=== PATIENT | female | born 1955 | race Two or more races ===

== ENCOUNTER 2017-02-04 09:56 | Emergency (ER) | payer MEDICAID ==
[~2017-02-04] VITALS: Ht 162.6 cm; Wt 72.6 kg
[~2017-02-04 09:56] MED LIST: ALPR0.25 PO; AMLO10TA4 PO; HYDR12.55 PO; LEVO500T15 PO; OXYC-128 PO; SERT25TA PO; TAMS-12 PO; ZOLP5TAB2 PO
--- NOTE | 2017-02-04 10:10 | NUR ---
PT BIBA#839 C/O DIZZINESS X 4 DAYS PT DENIES ANY HEAD TRAUMA OR INJURY. PLACED ON MONITOR .VSS AWAITING MD ORDER
[2017-02-04] MEDS ORDERED: ONDANSETRON HCL/PF 4 MG/2 ML VIAL IVP ONE (10:30)
[2017-02-04] MEDS ORDERED: IV NS 0.9% 1,000 ML BAG IV ONE (10:30)
[2017-02-04] MEDS ORDERED: MECLIZINE HCL 12.5 MG TABLET PO ONE (10:30)
--- NOTE | 2017-02-04 10:30 | NUR ---
URINE SAMPLE COLLECTED SENT TO LAB
[2017-02-04] MEDS ORDERED: MECLIZINE HCL 25 MG TABLET ONE (10:35)
[2017-02-04] MEDS ORDERED: IV NS 0.9% 1,000 ML ONE (10:36)
[2017-02-04] MEDS ORDERED: ONDANSETRON HCL/PF 4 MG/2 ML VIAL ONE (10:36)
[2017-02-04] MEDS ORDERED: IV SET PRIMARY PUMP SET 1 EA INFUS.SET MC ONE (10:36)
[2017-02-04 10:38] LABS: APPEARANCE,URINE Cloudy (CLEAR); BILIRUBIN,URINE Negative (NEGATIVE); BLOOD, URINE Trace-lysed Ery/uL (NEGATIVE); COLOR,URINE Yellow (YELLOW); KETONES,URINE Negative (NEGATIVE); LEUKOCYTE ESTERASE ,URINE Large (NEGATIVE); NITRITE, URINE Negative (NEGATIVE); PH,URINE 5.5 (5.0-8.0); PROTEIN,URINE Negative (NEGATIVE); UGLUCOSE Negative (NEGATIVE); UROBILINOGEN,URINE 0.2 EU/dL (0.2)
--- NOTE | 2017-02-04 10:45 | NUR ---
RFA #20 IV ACCESS BLOOD SAMPLE COLLECTED SENT TO LAB
[2017-02-04 10:47] LABS: EOSINOPHILS # (AUTO) 0.1 /CMM (0.0-0.7)
[2017-02-04 10:58] LABS: CALCIUM, SERUM 9.2 mg/dL (8.5-10.1); CREATININE 0.7 mg/dL (0.6-1.3); POTASSIUM 4.5 mmol/L (3.5-5.1)
[2017-02-04 11:05] LABS: BASOPHILS % (AUTO) 0.5 % (0.0-2.0); HEMATOCRIT 36 % (33-45); HEMOGLOBIN 12.2 g/dL (11.5-14.8); LYMPHOCYTES # (AUTO) 1.5 /CMM (0.8-4.8); LYMPHOCYTES % (AUTO) 25.8 % (20.0-44.0); MEAN CORPUSCULAR HEMOGLOBIN 27 PG (26.0-33.0); MEAN CORPUSCULAR HGB CONC 34 g/dl (31.0-36.0); MEAN CORPUSCULAR VOLUME 79 fL (82-100); MONOCYTES # (AUTO) 0.3 /CMM (0.1-1.30); NEUTROPHILS # (AUTO) 3.9 /CMM (1.8-8.9); NEUTROPHILS % (AUTO) 65.7 % (43.0-81.0); PLATELET COUNT (AUTO) 175 /CMM (150-450); RDW COEFFICIENT OF VARIATION 14.1 (11.5-15.0); RED BLOOD CELL COUNT(AUTO) 4.58 MIL/uL (4.0-5.2); WHITE BLOOD COUNT (AUTO) 5.8 K/uL (4.3-11.0)
[2017-02-04 11:10] LABS: ADD URINE CULTURE YES; BACTERIA,URINE Many /HPF (None Seen); RBC,URINE 0-2 /HPF (0-2); SQUAMOUS EPITHELIAL CELL,UR Many /HPF (None Seen); WBC,URINE 21-50 /HPF (0-3)
[2017-02-04 11:54] VITALS: BP 131/77
[2017-02-04] MEDS ORDERED: CIPROFLOXACIN HCL 250 MG TABLET PO ONE (12:00)
== END 2017-02-04 11:55 | disposition home or self-care (01) ==
LOC: ER 09:58
DX: H81.13 Benign paroxysmal vertigo, bilateral (principal); I10 Essential (primary) hypertension; Z87.442 Personal history of urinary calculi; Z95.5 Presence of coronary angioplasty implant and graft; Z90.89 Acquired absence of other organs
CPT/HCPCS: 36415; 80048; 81001; 85025; 87086; 93005; 96361; 96374; 99285; A4606; J2405; J7030; J8597; Z7610; 81000-TC

== ENCOUNTER 2017-02-10 21:11 | Emergency (ER) | payer MEDICAID ==
[~2017-02-10] VITALS: Ht 167.6 cm; Wt 81.6 kg
--- NOTE | 2017-02-10 21:14 | NUR ---
PT "HIGH BLOOD PRESSURE; HEADACHE" BP 150/96
[2017-02-10] MEDS ORDERED: NITROGLYCERIN 0.4 MG/TAB BOTTLE SL ONE (21:30)
--- NOTE | 2017-02-10 21:30 | NUR ---
BLOOD SAMPLE COLLECTED SENT TO LAB
[2017-02-10 21:37] LABS: BASOPHILS % (AUTO) 0.6 % (0.0-2.0); EOSINOPHILS # (AUTO) 0.2 /CMM (0.0-0.7); EOSINOPHILS % (AUTO) 2.6 % (0.0-6.0); HEMATOCRIT 36 % (33-45); LYMPHOCYTES % (AUTO) 28.5 % (20.0-44.0); MEAN CORPUSCULAR HEMOGLOBIN 26 PG (26.0-33.0); MEAN CORPUSCULAR HGB CONC 33 g/dl (31.0-36.0); MEAN CORPUSCULAR VOLUME 79 fL (82-100); MONOCYTES # (AUTO) 0.5 /CMM (0.1-1.30); MONOCYTES % (AUTO) 7.1 % (2.0-12.0); NEUTROPHILS # (AUTO) 4.4 /CMM (1.8-8.9); NEUTROPHILS % (AUTO) 61.2 % (43.0-81.0); PLATELET COUNT (AUTO) 193 /CMM (150-450); RDW COEFFICIENT OF VARIATION 13.7 (11.5-15.0); RED BLOOD CELL COUNT(AUTO) 4.56 MIL/uL (4.0-5.2); WHITE BLOOD COUNT (AUTO) 7.1 K/uL (4.3-11.0)
[2017-02-10] MEDS ORDERED: NITROGLYCERIN 0.4 MG/TAB BOTTLE ONE (21:40)
--- NOTE | 2017-02-10 21:50 | NUR ---
XRAY AT BEDSIDE
[2017-02-10 21:52] LABS: CALCIUM, SERUM 9.3 mg/dL (8.5-10.1); CARBON DIOXIDE 26 mmol/L (21-32); CHLORIDE 106 mmol/L (98-107); CREATININE 0.8 mg/dL (0.6-1.3); GFR 73 mL/min (>60); GLUCOSE 106 mg/dL (74-106); POTASSIUM 3.8 mmol/L (3.5-5.1); SODIUM SERUM 140 mmol/L (136-145); UREA NITROGEN, BLOOD 13 mg/dL (7-18)
[2017-02-10 22:02] LABS: INR 0.98 (0.87-1.13); PROTHROMBIN TIME 10.2 SECS (9.5-12.7); TROPONIN I < 0.017 ng/mL (0.00-0.056)
--- NOTE | 2017-02-10 22:06 | NUR ---
XIN #20 IV ACCESS.
[2017-02-10 22:16] LABS: APPEARANCE,URINE CLEAR (CLEAR); BILIRUBIN,URINE NEGATIVE (NEGATIVE); BLOOD, URINE TRACE Ery/uL (NEGATIVE); COLOR,URINE YELLOW (YELLOW); KETONES,URINE NEGATIVE (NEGATIVE); LEUKOCYTE ESTERASE ,URINE 3+ (NEGATIVE); NITRITE, URINE NEGATIVE (NEGATIVE); PH,URINE 6.5 (5.0-8.0); PROTEIN,URINE NEGATIVE (NEGATIVE); UGLUCOSE NEGATIVE (NEGATIVE); UROBILINOGEN,URINE 0.2 EU/dL (0.2)
[2017-02-10 22:27] LABS: ADD URINE CULTURE YES; BACTERIA,URINE None seen /HPF (None Seen); SQUAMOUS EPITHELIAL CELL,UR Few /HPF (None Seen)
[2017-02-10 22:43] VITALS: BP 140/82
--- NOTE | 2017-02-10 22:44 | NUR ---
IV removed. Catheter intact and site benign. Pressure and 4x4 applied to site. No bleeding noted.
--- NOTE | 2017-02-10 22:44 | NUR ---
Patient discharged to home in stable condition. Written and verbal after care instructions given. Patient verbalizes understanding of instruction.
== END 2017-02-10 22:44 | disposition home or self-care (01) ==
LOC: ER 21:46
DX: R07.89 Other chest pain (principal); I10 Essential (primary) hypertension
CPT/HCPCS: 36415; 71010-TC; 80048-TC; 81000-TC; 84484-TC; 85025-TC; 85730-TC; 87086-TC; A4606; Z7610

== ENCOUNTER 2019-09-01 17:53 | Emergency (ER) | payer MEDICARE, MEDICAID ==
[~2019-09-01] VITALS: Ht 165.1 cm; Wt 90.7 kg
[~2019-09-01 17:53] MED LIST changes: -LEVO500T15 PO; +LEVO500T75 PO
--- NOTE | 2019-09-01 18:40 | NUR ---
pt bib family to ed bed 02 c/o hypertension since last night. states taking her usual bp medication. denies chest pain. 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 awaiting md adam.
[2019-09-01 18:41] LABS: BASOPHILS % (AUTO) 0.6 % (0.0-2.0); EOSINOPHILS % (AUTO) 1.5 % (0.0-6.0); HEMATOCRIT 42 % (33-45); HEMOGLOBIN 13.4 g/dL (11.5-14.8); LYMPHOCYTES # (AUTO) 2.1 /CMM (0.8-4.8); MEAN CORPUSCULAR HGB CONC 32 g/dl (31.0-36.0); MEAN CORPUSCULAR VOLUME 81 fL (82-100); MONOCYTES # (AUTO) 0.5 /CMM (0.1-1.30); MONOCYTES % (AUTO) 6.3 % (2.0-12.0); NEUTROPHILS # (AUTO) 5.2 /CMM (1.8-8.9); NEUTROPHILS % (AUTO) 65.6 % (43.0-81.0); PLATELET COUNT (AUTO) 196 /CMM (150-450); WHITE BLOOD COUNT (AUTO) 7.9 K/uL (4.3-11.0)
--- NOTE | 2019-09-01 18:49 | NUR ---
dr carpenter at [facility] for eval.
[2019-09-01 18:52] LABS: CARBON DIOXIDE 30 mmol/L (21-32); CHLORIDE 92 mmol/L (98-107); CREATININE 0.7 mg/dL (0.6-1.3); GLUCOSE 94 mg/dL (74-106); POTASSIUM 3.7 mmol/L (3.5-5.1); SODIUM SERUM 128 mmol/L (136-145); UREA NITROGEN, BLOOD 17 mg/dL (7-18)
--- NOTE | 2019-09-01 19:03 | NUR ---
radiology at bedside for chest xray.
--- NOTE | 2019-09-01 19:16 | NUR ---
IV removed. Catheter intact and site benign. Pressure and 4x4 applied to site. No bleeding noted.
[2019-09-01 19:20] VITALS: BP 152/102
--- NOTE | 2019-09-01 19:20 | NUR ---
Patient discharged to home in stable condition. Written and verbal after care instructions given. Patient verbalizes understanding of instruction.
== END 2019-09-01 19:21 | disposition home or self-care (01) ==
LOC: ER 17:54
DX: I10 Essential (primary) hypertension (principal); E87.1 Hypo-osmolality and hyponatremia; F41.9 Anxiety disorder, unspecified; Z90.89 Acquired absence of other organs; Z95.818 Presence of other cardiac implants and grafts; Z87.442 Personal history of urinary calculi; Z79.899 Other long term (current) drug therapy
CPT/HCPCS: 36415; 71045-TC; 80048-TC; 84484-TC; 85025-TC

== ENCOUNTER 2019-10-16 01:16 | Emergency (ER) | payer MEDICARE, MEDICAID ==
[~2019-10-16] VITALS: Ht 154.9 cm; Wt 90.7 kg
--- NOTE | 2019-10-16 01:20 | NUR ---
PT BIBS SON C/O L CHEST PAIN RADIATING TO L LATERAL CHEST. SOB. WEAK X YESTERDAY +N/-VD. PT AAOX4, NO ACUTE DISTRESS NOTED. 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 WILL CONTINUE TO MONITOR
--- NOTE | 2019-10-16 01:25 | NUR ---
BLOOD DRAWN AND SENT TO LAB
[2019-10-16] MEDS ORDERED: NITROGLYCERIN 0.4 MG/TAB BOTTLE SL ONE (01:30)
[2019-10-16] MEDS ORDERED: ASPIRIN 81 MG TAB.CHEW PO ONE (01:30)
[2019-10-16] MEDS ORDERED: ASPIRIN 81 MG TAB.CHEW ONE (01:35)
[2019-10-16] MEDS ORDERED: NITROGLYCERIN 0.4 MG/TAB BOTTLE ONE (01:35)
--- NOTE | 2019-10-16 01:47 | NUR ---
XRAY AT BEDSIDE
[2019-10-16 01:49] LABS: BASOPHILS % (AUTO) 0.6 % (0.0-2.0); EOSINOPHILS % (AUTO) 2.1 % (0.0-6.0); HEMATOCRIT 38 % (33-45); HEMOGLOBIN 12.3 g/dL (11.5-14.8); LYMPHOCYTES # (AUTO) 2.5 /CMM (0.8-4.8); LYMPHOCYTES % (AUTO) 28.6 % (20.0-44.0); MEAN CORPUSCULAR HGB CONC 32 g/dl (31.0-36.0); MEAN CORPUSCULAR VOLUME 82 fL (82-100); MONOCYTES # (AUTO) 0.6 /CMM (0.1-1.30); MONOCYTES % (AUTO) 7.3 % (2.0-12.0); NEUTROPHILS # (AUTO) 5.3 /CMM (1.8-8.9); NEUTROPHILS % (AUTO) 61.4 % (43.0-81.0); PLATELET COUNT (AUTO) 210 /CMM (150-450); WHITE BLOOD COUNT (AUTO) 8.7 K/uL (4.3-11.0)
--- NOTE | 2019-10-16 01:53 | NUR ---
2ND DOSE OF NITROGLYCERIN 0.4 MG GIVE SL.
[2019-10-16 01:57] LABS: CARBON DIOXIDE 29 mmol/L (21-32); CHLORIDE 106 mmol/L (98-107); GLUCOSE 123 mg/dL (74-106); POTASSIUM 3.6 mmol/L (3.5-5.1); SODIUM SERUM 144 mmol/L (136-145); UREA NITROGEN, BLOOD 24 mg/dL (7-18)
--- NOTE | 2019-10-16 02:01 | NUR ---
PT RELIEVED W/ 2ND DOSE OF NITROGLYCERIN 0.4. 0/10 CHEST PAIN
--- NOTE | 2019-10-16 02:05 | NUR ---
[facility]BER JET [phone]
--- NOTE | 2019-10-16 03:24 | NUR ---
PT AMBULATED TO THE RESTROOM W/ STEADY GAIT
[2019-10-16 03:35] LABS: APPEARANCE,URINE Slightly Cloudy (CLEAR); BILIRUBIN,URINE SMALL (NEGATIVE); BLOOD, URINE Moderate Ery/uL (NEGATIVE); COLOR,URINE Dark (YELLOW); KETONES,URINE Trace (NEGATIVE); LEUKOCYTE ESTERASE ,URINE Small (NEGATIVE); NITRITE, URINE Negative (NEGATIVE); PH,URINE 5.5 (5.0-8.0); PROTEIN,URINE Negative (NEGATIVE); UGLUCOSE Negative (NEGATIVE); UROBILINOGEN,URINE 0.2 EU/dL (0.2)
--- NOTE | 2019-10-16 03:41 | NUR ---
DR. AGUIRRE ON THE PHONE WITH DR. YARBROUGH FROM [facility]
[2019-10-16] MEDS ORDERED: LORA-259 PO (03:46)
--- NOTE | 2019-10-16 04:06 | NUR ---
PER [facility] ([phone]), PT WILL BE TRANSFERRED TO [facility], PENDING BED ASSIGNMENT
--- NOTE | 2019-10-16 04:12 | NUR ---
Trever elliott in [facility] - 10/16/19 at 0412 by SILVERIO PER
--- NOTE | 2019-10-16 04:14 | NUR ---
TRANSFER INFORMATION: PER INSURANCE REQUEST, PT WILL BE TRANSFERRED TO [facility] BED ASSIGNMENT 205B NURSE FOR REPORT: HAYDER PENG NUMBER FOR REPORT: [phone] ETA [phone] WITH [facility]
[2019-10-16 04:23] LABS: BACTERIA,URINE Few /HPF (None Seen); RBC,URINE TOO NUMEROUS TO COUN /HPF (0-2); SQUAMOUS EPITHELIAL CELL,UR Few /HPF (None Seen); WBC,URINE TOO NUMEROUS TO COUN /HPF (0-3)
--- NOTE | 2019-10-16 04:33 | NUR ---
Patient is resting comfortably in bed with eyes closed. Easily aroused. VSS
--- NOTE | 2019-10-16 04:39 | NUR ---
REPORT GIVEN HAYDER PENG FROM [facility].
--- NOTE | 2019-10-16 05:12 | NUR ---
Patient is resting comfortably in bed reading. Awake. VSS
[2019-10-16 06:05] VITALS: BP 164/94
--- NOTE | 2019-10-16 07:20 | NUR ---
PT TRANSFERRED IN STABLE CONDITION. REPORT GIVEN TO EMS
== END 2019-10-16 07:21 | disposition short-term general hospital (02) ==
LOC: ER 01:17
DX: R07.89 Other chest pain (principal); E78.00 Pure hypercholesterolemia, unspecified; I10 Essential (primary) hypertension; I25.10 Atherosclerotic heart disease of native coronary artery without angina pectoris; Z95.5 Presence of coronary angioplasty implant and graft; Z87.442 Personal history of urinary calculi; Z90.89 Acquired absence of other organs; Z79.899 Other long term (current) drug therapy
CPT/HCPCS: 36415; 71045-TC; 80048-TC; 81000-TC; 84484-TC; 85025-TC; 87081-TC; 87086-TC

== ENCOUNTER 2023-11-07 02:45 | Emergency (ER) | payer MEDICARE, OTHER ==
[~2023-11-07] VITALS: Ht 154.9 cm; Wt 108.9 kg
[~2023-11-07 02:45] MED LIST changes: +LEVO500T23 PO; -LEVO500T75 PO; +LORA-259 PO
[2023-11-07 04:04] LABS: BASOPHILS % (AUTO) 0.6 % (0.0-2.0); EOSINOPHILS # (AUTO) 0.2 K/uL (0.0-0.7); EOSINOPHILS % (AUTO) 2.1 % (0.0-6.0); HEMATOCRIT 37 % (33-45); HEMOGLOBIN 11.7 g/dL (11.5-14.8); LYMPHOCYTES # (AUTO) 1.8 K/uL (0.8-4.8); LYMPHOCYTES % (AUTO) 24.1 % (20.0-44.0); MEAN CORPUSCULAR HEMOGLOBIN 27 PG (26.0-33.0); MEAN CORPUSCULAR HGB CONC 32 g/dl (31.0-36.0); MEAN CORPUSCULAR VOLUME 84 fL (82-100); MONOCYTES # (AUTO) 0.6 K/uL (0.1-1.30); MONOCYTES % (AUTO) 8.5 % (2.0-12.0); NEUTROPHILS # (AUTO) 4.8 K/uL (1.8-8.9); NEUTROPHILS % (AUTO) 64.7 % (43.0-81.0); PLATELET COUNT (AUTO) 175 K/uL (150-450); RED BLOOD CELL COUNT(AUTO) 4.37 MIL/uL (4.0-5.2); RED CELL DISTRIBUTION WIDTH 15.8 % (11.5-15.0); WHITE BLOOD COUNT (AUTO) 7.4 K/uL (4.3-11.0)
[2023-11-07 04:14] LABS: CALCIUM, SERUM 9.4 mg/dL (8.5-10.1); CREATININE 0.8 mg/dL (0.6-1.3)
[2023-11-07 04:27] LABS: ALBUMIN 3.6 g/dL (3.4-5.0); BILIRUBIN,TOTAL 0.4 mg/dL (0.2-1.0); TOTAL PROTEIN, SERUM 7.3 g/dL (6.4-8.2)
[2023-11-07 06:58] VITALS: BP 139/80; TEMP 98.3; O2SAT 97
== END 2023-11-07 06:58 | disposition home or self-care (01) ==
LOC: ER 02:51
DX: R07.89 Other chest pain (principal); I10 Essential (primary) hypertension; F41.9 Anxiety disorder, unspecified; Z79.899 Other long term (current) drug therapy; Z98.890 Other specified postprocedural states
CPT/HCPCS: 36415; 71045-TC; 80053-TC; 83880; 84484-TC; 85025-TC

== ENCOUNTER 2024-10-12 01:18 | Emergency (ER) | payer MEDICARE, OTHER ==
[~2024-10-12] VITALS: Ht 154.9 cm; Wt 99.8 kg
[2024-10-12] MEDS: MECLIZINE HCL 12.5 MG TABLET PO ONE (02:00)
[2024-10-12] MEDS ORDERED: MECLIZINE HCL 25 MG TABLET ONE (02:09)
[2024-10-12 02:39] LABS: CALCIUM, SERUM 9.6 mg/dL (8.5-10.1); CREATININE 0.8 mg/dL (0.6-1.3); POTASSIUM 3.8 mmol/L (3.5-5.1)
[2024-10-12 02:41] LABS: BASOPHILS % (AUTO) 0.3 % (0.0-2.0); EOSINOPHILS # (AUTO) 0.2 K/uL (0.0-0.7); HEMATOCRIT 37 % (33-45); HEMOGLOBIN 12.3 g/dL (11.5-14.8); LYMPHOCYTES # (AUTO) 2.1 K/uL (0.8-4.8); LYMPHOCYTES % (AUTO) 23.7 % (20.0-44.0); MEAN CORPUSCULAR HEMOGLOBIN 29 PG (26.0-33.0); MEAN CORPUSCULAR HGB CONC 33 g/dl (31.0-36.0); MEAN CORPUSCULAR VOLUME 86 fL (82-100); MONOCYTES # (AUTO) 0.7 K/uL (0.1-1.30); MONOCYTES % (AUTO) 8.1 % (2.0-12.0); NEUTROPHILS # (AUTO) 5.7 K/uL (1.8-8.9); NEUTROPHILS % (AUTO) 65.9 % (43.0-81.0); PLATELET COUNT (AUTO) 179 K/uL (150-450); RED BLOOD CELL COUNT(AUTO) 4.29 MIL/uL (4.0-5.2); RED CELL DISTRIBUTION WIDTH 16.1 % (11.5-15.0); WHITE BLOOD COUNT (AUTO) 8.7 K/uL (4.3-11.0)
[2024-10-12 08:35] VITALS: BP 148/75; TEMP 98; O2SAT 97
== END 2024-10-12 08:36 | disposition home or self-care (01) ==
LOC: ER 01:25
DX: R42 Dizziness and giddiness (principal); F41.9 Anxiety disorder, unspecified; I10 Essential (primary) hypertension; Z79.899 Other long term (current) drug therapy; Z87.442 Personal history of urinary calculi; Z95.5 Presence of coronary angioplasty implant and graft
CPT/HCPCS: 99285; 70450; 71045; 93005; 85025; 80048; 36415; J8597

== ENCOUNTER 2025-07-02 18:52 | Inpatient (IN) | payer MEDICARE, OTHER ==
[~2025-07-02] VITALS: Ht 154.9 cm; Wt 104.3 kg
[2025-07-02] MEDS ORDERED: ONDANSETRON HCL/PF 4 MG/2 ML VIAL ONE ×2 (19:33→21:25)
[2025-07-02] MEDS ORDERED: MORPHINE SULFATE INJ 4 MG/ML DISP.SYRIN ONE ×2 (19:33→21:25)
[2025-07-02] MEDS: ONDANSETRON HCL/PF 4 MG/2 ML VIAL IVP ONE (19:40)
[2025-07-02] MEDS: MORPHINE SULFATE INJ 2 MG/ML DISP.SYRIN IV ONE ×2 (19:40→21:34)
[2025-07-02] MEDS: IV NS 0.9% 500 ML BAG IV ONE (19:45)
[2025-07-02 19:55] LABS: PLATELET COUNT (AUTO) 197 K/uL (150-450); RED BLOOD CELL COUNT(AUTO) 4.60 MIL/uL (4.0-5.2); RED CELL DISTRIBUTION WIDTH 15.9 % (11.5-15.0); WHITE BLOOD COUNT (AUTO) 8.6 K/uL (4.3-11.0)
[2025-07-02 20:02] LABS: CALCIUM, SERUM 9.8 mg/dL (8.5-10.1); CREATININE 1.1 mg/dL (0.6-1.3); SODIUM SERUM 139 mmol/L (136-145); UREA NITROGEN, BLOOD 29 mg/dL (7-18)
[2025-07-02 20:07] LABS: ASPARTATE AMINOTRANSFERASE 18 U/L (15-37); TOTAL PROTEIN, SERUM 8.0 g/dL (6.4-8.2)
[2025-07-02] MEDS ORDERED: KETOROLAC TROMETHAMINE 15 MG/ML VIAL ONE (20:44)
[2025-07-02] MEDS: KETOROLAC TROMETHAMINE 15 MG/ML VIAL IV ONE (20:49)
[2025-07-02 20:51] LABS: APPEARANCE,URINE CLEAR (CLEAR); BLOOD, URINE TRACE-INTA Ery/uL (NEGATIVE); LEUKOCYTE ESTERASE ,URINE TRACE (NEGATIVE); NITRITE, URINE NEGATIVE (NEGATIVE); UGLUCOSE NEGATIVE (NEGATIVE)
[2025-07-02] MEDS ORDERED: hydrALAZINE HCL IV 20 MG VIAL ONE (21:24)
[2025-07-02] MEDS ORDERED: LABETALOL 20 MG/4 ML VIAL IV ONE (21:30)
[2025-07-02] MEDS: ONDANSETRON HCL/PF 4 MG/2 ML VIAL IV ONE (21:30)
[2025-07-02 21:34] LABS: ADD URINE CULTURE NO; SQUAMOUS EPITHELIAL CELL,UR 0-2 /HPF (None Seen)
[2025-07-02] MEDS: hydrALAZINE HCL IV 20 MG VIAL IV ONE (21:35)
[2025-07-02] MEDS ORDERED: MAG HYDROX/AL HYDROX/SIMETH 30 ML UDC PO PRN (22:30)
[2025-07-02] MEDS ORDERED: ACETAMINOPHEN 325 MG TABLET PO PRN (22:30)
[2025-07-02] MEDS: LEVOFLOXACIN 750 MG /D5W 150ML 750 MG in PREMIX 1 EA IV SCH (22:30)
[2025-07-02] MEDS ORDERED: MORPHINE SULFATE INJ 2 MG/ML DISP.SYRIN IV PRN ×2 (22:30)
[2025-07-02] MEDS: TAMSULOSIN 0.4 MG CAP.SR.24H PO ONE (22:30)
[2025-07-02] MEDS ORDERED: ONDANSETRON HCL/PF 4 MG/2 ML VIAL IVP PRN (22:30)
[2025-07-02] MEDS ORDERED: MAGNESIUM HYDROXIDE 30 ML UDC PO PRN (22:30)
[2025-07-03] MEDS ORDERED: LEVOFLOXACIN 750 MG /D5W 150ML 150 ML IV ONE (01:09)
[2025-07-03] MEDS ORDERED: TAMSULOSIN 0.4 MG CAP.SR.24H ONE (01:10)
[2025-07-03] MEDS: IV NS 0.9% 1,000 ML IV PRN (03:48)
[2025-07-03 04:22] VITALS: BP 158/90; TEMP 97.3; O2SAT 97
[2025-07-03 06:16] LABS: PLATELET COUNT (AUTO) 183 K/uL (150-450); RED BLOOD CELL COUNT(AUTO) 4.46 MIL/uL (4.0-5.2); RED CELL DISTRIBUTION WIDTH 15.5 % (11.5-15.0); WHITE BLOOD COUNT (AUTO) 9.5 K/uL (4.3-11.0)
[2025-07-03 06:24] LABS: CALCIUM, SERUM 9.7 mg/dL (8.5-10.1); CREATININE 1.1 mg/dL (0.6-1.3); PHOSPHORUS 4.6 mg/dL (2.5-4.9); SODIUM SERUM 142.0 mmol/L (136-145); UREA NITROGEN, BLOOD 28.0 mg/dL (7-18)
[2025-07-03 07:30] VITALS: BP 123/73; TEMP 97.7; O2SAT 97
[2025-07-03] MEDS: TAMSULOSIN 0.4 MG CAP.SR.24H PO SCH (08:08)
[2025-07-03] MEDS: PANTOPRAZOLE 40 MG TABLET.DR PO SCH (08:08)
[2025-07-03] MEDS: ENOXAPARIN SODIUM 40 MG/0.4 ML DISP.SYRIN SQ SCH (08:11)
[2025-07-03] MEDS ORDERED: hydrALAZINE HCL IV 20 MG VIAL IV PRN (08:30)
[2025-07-03] MEDS ORDERED: ACETAMINOPHEN 650 MG/SUPP.RECT RC PRN (08:30)
[2025-07-03] MEDS ORDERED: MECL-159 PO (08:31)
[2025-07-03] MEDS ORDERED: MAGN400T26 PO (08:31)
[2025-07-03] MEDS ORDERED: HYDR-3980 MT (08:31)
[2025-07-03] MEDS ORDERED: ZOLP10TA2 PO (08:31)
[2025-07-03] MEDS ORDERED: CARV25TA2 PO (08:31)
[2025-07-03] MEDS ORDERED: METO-357 PO (08:31)
[2025-07-03] MEDS ORDERED: FURO-145 PO (08:31)
[2025-07-03] MEDS ORDERED: LOSA1TAB39 PO (08:31)
[2025-07-03] MEDS ORDERED: ACYC400T19 PO (08:31)
[2025-07-03] MEDS ORDERED: FERR-68 PO (08:31)
[2025-07-03] MEDS ORDERED: SERT50TA PO (08:31)
[2025-07-03] MEDS ORDERED: SUCR1TAB PO (08:31)
[2025-07-03] MEDS ORDERED: CLOP75TA15 PO (08:31)
[2025-07-03] MEDS ORDERED: BENA10TA74 PO (08:31)
[2025-07-03] MEDS ORDERED: ASPI-1169 PO (08:31)
[2025-07-03] MEDS ORDERED: SENN8.6T19 PO (08:31)
[2025-07-03] MEDS ORDERED: HYDR-4076 PO (08:31)
[2025-07-03] MEDS ORDERED: ONDA-97 PO (08:31)
[2025-07-03] MEDS ORDERED: DASA100T PO (08:31)
[2025-07-04] MEDS ORDERED: PANTOPRAZOLE 40 MG VIAL IV SCH (09:00)
== END 2025-07-03 10:45 | disposition home or self-care (01) | DRG 694 ==
LOC: ER 19:01 → MED 07-03 01:40
PROVIDERS: ADMIT Registered Nurse Psychiatric/Mental Health; ATTEND Internal Medicine
DX: N13.2 Hydronephrosis with renal and ureteral calculous obstruction (principal); C95.90 Leukemia, unspecified not having achieved remission; K76.0 Fatty (change of) liver, not elsewhere classified; E86.0 Dehydration; I25.10 Atherosclerotic heart disease of native coronary artery without angina pectoris; Z95.5 Presence of coronary angioplasty implant and graft; R73.9 Hyperglycemia, unspecified; I10 Essential (primary) hypertension; Z79.899 Other long term (current) drug therapy; Z79.60 Long term (current) use of unspecified immunomodulators and immunosuppressants; Z87.442 Personal history of urinary calculi; F41.9 Anxiety disorder, unspecified; Z90.49 Acquired absence of other specified parts of digestive tract; I83.93 Asymptomatic varicose veins of bilateral lower extremities; N12 Tubulo-interstitial nephritis, not specified as acute or chronic; Z98.890 Other specified postprocedural states
CPT/HCPCS: 36415; 71045-TC; 80048-TC; 80076-TC; 81001; 83690-TC; 83735-TC; 84100-TC; 84484-TC; 85025-TC; 87086-TC; A4216; A4223; G0378; J0360; J1650; J1885; J1956; J2270; J2405; J7030